=== PATIENT | female | born 1980 | race Caucasian/White ===

== ENCOUNTER 2017-01-04 12:35 | Emergency (ER) | payer MEDICAID ==
[~2017-01-04] VITALS: Wt 60.0 kg
[~2017-01-04 12:35] MED LIST: ACET-2047 PO; ACET-915; IBUP800T25 PO
[2017-01-04] MEDS ORDERED: AZIT250T94 PO (15:12)
[2017-01-04] MEDS ORDERED: IBUP-1542 PO (15:13)
[2017-01-04] MEDS ORDERED: UDROBDM PO (15:13)
[2017-01-04] MEDS ORDERED: CETI10CA PO (15:13)
[2017-01-04] MEDS ORDERED: FLUT9.9S NASAL (15:13)
--- NOTE | 2017-01-04 15:19 | ERD ---
ER Documentation Chief Complaint Chief Complaint THROAT PAIN, ONSET 5 DAYS, DRY COUGH HPI This is a 36-year-old female who presents the emergency department today complaining of cough and sore throat for the past week. Patient states she also has nasal congestion. States that she has tried NyQuil and Advil but she is now having some upper back pain from the coughing. She states she has a headache from coughing. States h\Her ears feel plugged. States that she does use oral contraceptive pills, denies any leg pain, shortness of breath, recent prolonged foreign travel. ROS All systems reviewed and are negative except as per history of present illness. Medications Home Meds Active Scripts Ibuprofen* (Motrin*) 600 Mg Tab, 600 MG PO Q6, #30 TAB Prov:MIAH COUCH PA-C 01/04/17 Cetirizine Hcl* (Zyrtec*) 10 Mg Capsule, 10 MG PO DAILY, #14 TAB.CHEW Prov:MIAH COUCH PA-C 01/04/17 Fluticasone Propionate (Flonase Allergy Relief) 9.9 Ml [place].susp, 2 SPRAY NASAL DAILY, #1 BOTTLE TO EACH NOSTRIL Prov:MIAH COUCH PA-C 01/04/17 Guaifenesin-Dextromethorphan* (Robitussin* DM) 100MG/10MG/5ML Syrup, 10 ML PO Q6H Y for COUGH for 5 Days, ML Prov:MIAH COUCH PA-C 01/04/17 Azithromycin* (Zithromax*) 250 Mg Tablet, 250 MG PO .GRAYSON DIRECTED, #6 TAB TAKE 500 MG (2 TABS) THE FIRST DAY THEN 250 MG (1 TAB) DAYS 2-5 Prov:MIAH COUCH PA-C 01/04/17 Acetaminophen* (Acetaminophen*) 650 Mg Tablet, 650 MG PO Q6H Y for PAIN AND OR ELEVATED TEMP, #30 TAB Prov:MICH FULLER DO 01/10/16 Ibuprofen* (Ibuprofen*) 800 Mg Tablet, 800 MG PO Q8, #30 TAB Prov:MICH FULLER DO 01/10/16 Reported Medications Acetaminophen* (Tylenol*) 325 Mg Tab 10/23/09 Allergies Allergies: Coded Allergies: No Known Allergy (Verified , 01/10/16) PMhx/Soc History of Surgery: No Anesthesia Reaction: No Hx Neurological Disorder: No Hx Respiratory Disorders: No Hx Cardiac Disorders: No Hx Psychiatric Problems: No Hx Miscellaneous Medical Probl: No Hx Alcohol Use: No Hx Substance Use: No Hx Tobacco Use: No Physical Exam Vitals Vital Signs Date Time Temp Pulse Resp B/P Pulse Ox O2 Delivery O2 Flow Rate FiO2 01/04/17 12:38 97.6 102 17 118/71 100 Physical Exam Const: NAD Head: Atraumatic Eyes: Normal Conjunctiva ENT: TMs normal. Nose no drainage. Throat with mild erythema no exudate no vesicles . Drainage of posterior pharynx. Neck: Full range of motion..~ No meningismus. Resp: Clear to auscultation bilaterally. No absent breath sounds. No wheezing Cardio: Regular rate and rhythm, no murmurs Abd: Soft, non tender, non distended. Normal bowel sounds Skin: No petechiae or rashes Back: No midline or flank tenderness Ext: No cyanosis, or edema. No calf tenderness Neur: Awake and alert Psych: Normal Mood and Affect Procedures/MDM This a 36-year-old female who presents to the emergency department today with multiple complaints and dysuria. Her symptoms at this time appear most consistent with URI likely viral over given duration of symptoms I will give the patient a prescription for azithromycin cover her for strep pharyngitis, bronchitis, sinusitis or pneumonia. I did offer to obtain a chest x-ray as patient was complaining of some upper back pain when she takes a deep breath however patient declined at this time. Prior to me leaving the exam room patient indicated that she thinks she gave herself a urinary tract infection from taking the [id number] medications and she has some pain with urination. I explained to the patient that she does not likely get a urinary tract infection from the NyQuil or taking the Advil. I did offer obtain a urinalysis for patient however she stated that she had been waiting here too long and wanted to go home and that she would just follow up with the person that gives her control pills. Patient is afebrile and otherwise well-appearing. Her oxygen saturation 100%. She is very mildly tachycardic. Given patient's multiple URI complaints I feel that a PE is less likely in this patient despite using oral contraceptive pills. She has no calf tenderness. Patient's primary concern was her cough and sore throat. Patient was given a prescription for azithromycin, Flonase, Zyrtec, Robitussin and Motrin. At this time the patient is stable for discharge and outpatient management. Patient should follow up with their PCP in the next 1-2 days. They may return to the emergency department sooner for any persistent or worsening of symptoms. Patient understood and agreed with the plan. Departure Diagnosis: Primary Impression: Multiple complaints Additional Impression: Dysuria Condition: Fair Patient Instructions: Dysuria, Preventing Common Respiratory Infections [facility] Usted se sullivan hecho un examen mdico de control que le indica que no est en geo condicin que requiera tratamiento urgente en el Departamento de Emergencia. Un estudio ms profundo y el tratamiento de farmer condicin pueden esperar sin ningn riesgo hasta que usted sea atendida/o en el consultorio de farmer mdico o geo cl juan. Es responsabilidad suya arreglar geo tylor para el seguimiento del quang. MANEJO DE CONDICIONES NO URGENTES EN EL FUTURO 1) Si usted tiene un mdico de atencin primaria: Usted debera llamar a farmer mdico de atencin primaria antes de venir al departamento de emergencia. Despus de las horas de consultorio, farmer doctor o farmer asociado/a est disponible por telfono. El mdico o enfermero de jay en el servicio telefnico puede asesorarle por manan medio para atender el problema, o quang contrario se puede programar geo tylor. 2) Si usted no tiene un mdico de atencin primaria: Llame al mdico o clnica de referencia que aparece abajo chris las horas de consultorio para hacer geo tylor para que le vean. CLINICAS: [facility] [id number] [facility] [phone] [facility] [phone] [facility] [phone] [facility] [phone] [address] [facility]. [phone] [address] Additional Instructions: Llame al doctor MAANA y arsenio geo TYLOR PARA DENTRO DE 1-2 DE LEON.Dgale a la secretaria que nosotros le instruimos hacer esta tylor.Avise o llame si farmer condicin se empeora antes de la tylor. Regresa aqui si peor o no mejor. Take Tylenol or Naprosyn or Motrin for pain. Take Robitussin for cough and stay well hydrated with plenty of clear fluids. Take Flonase and Zyrtec for nasal congestion. Take Antibiotics as prescribed MIAH COUCH PA-C Jan 04, 2017 15:19
[2017-01-04 15:54] VITALS: BP 110/60; PULSE 68; RESP 16; TEMP 97.9
== END 2017-01-04 15:48 | disposition home or self-care (01) ==
LOC: FTE 12:35
DX: J02.9 Acute pharyngitis, unspecified (principal); R30.0 Dysuria; R05 Cough; R09.81 Nasal congestion; M54.6 Pain in thoracic spine; R51 Headache
CPT/HCPCS: 99283